=== PATIENT | female | born 1950 | race Caucasian/White ===

== ENCOUNTER 2022-05-18 21:01 | Inpatient (IN) | payer MEDICARE, BC ==
[2022-05-18 21:49] LABS: #Basophils 0.1 thou/uL (0.0-0.2); #Eosinphils 0.2 thou/uL (0.0-0.7); #Lymphocytes 2.7 thou/uL (1.20-3.40); #Monocytes 0.6 thou/uL (0.11-0.59); #Neutrophils 3.7 thou/uL (1.40-6.50); %Basophils 0.9 % (0.0-1.0); %Eosinophils 2.9 % (0.0-10.0); %Lymphocytes 36.6 % (21.0-51.0); %Monocytes 8.4 % (0.0-10.0); %Neutrophils 51.2 % (42.0-75.0); Hemoglobin 14.1 g/dL (12.0-16.0); Mean Corpuscular HGB CONC 33.5 g/dL (32.0-36.0); Mean Corpuscular Hemoglobin 32.1 pg (27.0-31.0); Mean Corpuscular Volume 95.6 fl (78.0-98.0); Mean Platelet Volume 7.1 fL (7.4-10.4); Platelet Count 231 10x3/uL (130-400); RBC Distribution Width 11.3 % (11.5-14.5); Red Blood Cell (RBC) Count 4.38 mill/uL (4.20-5.40); White Blood Cell (WBC) Count 7.2 10x3/uL (4.8-10.8)
[2022-05-18 22:10] LABS: Anion Gap 11 mmol/L (10-20); BUN (Urea Nitrogen) 7 mg/dL (9.8-20.1); Calc. Creatinine Clearance 0 mL/min (70-130); Carbon Dioxide 25 mmol/L (23-31); Chloride 107 mmol/L (98-107); Potassium 3.9 mmol/L (3.5-5.1); Sodium 139 mmol/L (136-145)
[2022-05-18 22:11] LABS: ALT (SGPT) 19 U/L (8-55); AST (SGOT) 27 U/L (5-34); Alkaline Phosphatase 47 U/L (40-110); Bilirubin, Total 0.5 mg/dL (0.2-1.2); Calcium 9.1 mg/dL (7.8-10.44); Estimated GFR 82; Globulin 3.2 g/dL (2.4-3.5); Glucose 114 mg/dL (80-115); Lipase 28 U/L (8-78); Protein, Total 7.2 g/dL (5.8-8.1)
[2022-05-18] MEDS ORDERED: Aspirin 325 MG TAB ONE (23:14)
[2022-05-19 00:04] LABS: PTT 28.2 sec (22.9-36.1); Prothrombin Time 13.8 sec (12.0-14.7)
[2022-05-19] MEDS ORDERED: Acetaminophen 325 MG TAB PO PRN (00:55)
[2022-05-19] MEDS ORDERED: Ondansetron PF 4 MG/2 ML Vial IVP PRN (00:55)
[2022-05-19 01:46] LABS: Troponin I Less than 0.010 ng/mL (< 0.028)
[2022-05-19 02:57] VITALS: BMI 24.5
[2022-05-19 05:05] LABS: #Basophils 0.1 thou/uL (0.0-0.2); #Eosinphils 0.1 thou/uL (0.0-0.7); #Lymphocytes 1.8 thou/uL (1.20-3.40); #Monocytes 0.7 thou/uL (0.11-0.59); #Neutrophils 4.2 thou/uL (1.40-6.50); %Basophils 0.7 % (0.0-1.0); %Eosinophils 1.2 % (0.0-10.0); %Lymphocytes 26.6 % (21.0-51.0); %Neutrophils 61.5 % (42.0-75.0); Hemoglobin 13.6 g/dL (12.0-16.0); Mean Corpuscular HGB CONC 33.3 g/dL (32.0-36.0); Mean Corpuscular Hemoglobin 32.2 pg (27.0-31.0); Mean Corpuscular Volume 96.7 fl (78.0-98.0); Mean Platelet Volume 7.1 fL (7.4-10.4); Platelet Count 217 10x3/uL (130-400); RBC Distribution Width 11.1 % (11.5-14.5); Red Blood Cell (RBC) Count 4.21 mill/uL (4.20-5.40); White Blood Cell (WBC) Count 6.8 10x3/uL (4.8-10.8)
[2022-05-19 05:20] LABS: Anion Gap 10 mmol/L (10-20); BUN (Urea Nitrogen) 9 mg/dL (9.8-20.1); Calc. Creatinine Clearance 72 mL/min (70-130); Calcium 9.3 mg/dL (7.8-10.44); Carbon Dioxide 26 mmol/L (23-31); Cardiac Risk 2.3 (Less than 4.5); Chloride 109 mmol/L (98-107); Cholesterol 144 mg/dl (< 200 Desired); Estimated GFR 94; Glucose 96 mg/dL (80-115); HDL Cholesterol 63 mg/dL (>60 Neg Risk); LDL Cholesterol, Calculated 65 mg/dL; Magnesium 2.1 mg/dL (1.6-2.6); Potassium 4.4 mmol/L (3.5-5.1); Sodium 141 mmol/L (136-145); Triglycerides 82 mg/dL (Less than 150)
[2022-05-19 05:22] LABS: Troponin I Less than 0.010 ng/mL (< 0.028)
[2022-05-19] MEDS ORDERED: Levothyroxine Sodium 50 MCG TAB PO SCH (06:00)
[2022-05-19] MEDS ORDERED: FLU VACC QS2022-23(65YR UP)/PF 240 MCG/0.7 ML SYRINGE IM ONE (09:00)
[2022-05-19] MEDS: Aspirin 81 mg Enteric Coated Tablet PO SCH (09:26)
[2022-05-19] MEDS ORDERED: Rosuvastatin 20 MG TAB PO SCH (21:00)
[2022-05-20] MEDS ORDERED: Levothyroxine Sodium 50 MCG TAB PO SCH (06:00)
[2022-05-20] MEDS ORDERED: Cholecalciferol 1,000 UNITS (25 MCG) TAB PO SCH (09:00)
[2022-05-20] MEDS ORDERED: Calcium Carbonate 500 MG TAB PO SCH (09:00)
[2022-05-20] MEDS ORDERED: Escitalopram Oxalate 10 mg Tablet PO SCH (09:00)
[2022-05-20] MEDS ORDERED: Rosuvastatin 20 MG TAB PO SCH (09:00)
[2022-05-20] MEDS: Aspirin 81 mg Enteric Coated Tablet PO SCH (09:06)
[2022-05-20 13:43] VITALS: BP 140/75; TEMP 97.3
== END 2022-05-20 15:44 | disposition home or self-care (01) | DRG 69 ==
LOC: ERS 21:01 → NEURO 23:55 → OBSVTOIN 05-19 16:02
PROVIDERS: ADMIT Internal Medicine; ATTEND Family Medicine
DX: G45.9 Transient cerebral ischemic attack, unspecified (principal); I50.32 Chronic diastolic (congestive) heart failure; E03.9 Hypothyroidism, unspecified; I48.0 Paroxysmal atrial fibrillation; I11.0 Hypertensive heart disease with heart failure; R42 Dizziness and giddiness; R55 Syncope and collapse; R00.1 Bradycardia, unspecified; E78.5 Hyperlipidemia, unspecified; Z79.82 Long term (current) use of aspirin; Z91.040 Latex allergy status; Z90.89 Acquired absence of other organs; Z98.890 Other specified postprocedural states; Z82.49 Family history of ischemic heart disease and other diseases of the circulatory system; Z87.891 Personal history of nicotine dependence
CPT/HCPCS: 36415; 70450; 70551; 71045; 80048; 80053; 80061; 83690; 83735; 84443; 84484; 85025; 85610; 85730; 90471; 90662; 93005; 93306; 93880; 94760; G0008; G0378; U0003; U0005

== ENCOUNTER 2023-11-22 13:26 | Outpatient (CLI) | payer MEDICARE, BC | END 2023-11-22 13:27 | disposition home or self-care (01) | LOC: BICMRI 13:26 | PROVIDERS: ATTEND Otolaryngology | DX: H90.3 Sensorineural hearing loss, bilateral (principal); R90.82 White matter disease, unspecified | CPT/HCPCS: 70553; 82565 ==